=== PATIENT | female | born 2000 | race Caucasian/White ===

== ENCOUNTER 2019-08-11 13:29 | Emergency (ER) | payer SELFPAY ==
[2019-08-11 14:22] LABS: ABS Monocytes 0.8 10^3/ul (0-0.8); Eosinophil % 0.2 %; Hematocrit 41 % (35-47); Hemoglobin 13.9 g/dL (12.0-16.0); Lymphocyte % 10.5 %; Mean Corpuscular HGB Conc 34 g/dL (31-36); Mean Corpuscular Hemoglobin 30 pg (27-31); Mean Corpuscular Volume 89 fL (80-97); Mean Platelet Volume 8.8 fL (7.4-10.4); Platelet Count 270 10^3/uL (150-450); Red Blood Count 4.66 10^6 /uL (3.70-4.87); Red Cell Distribution Width 13 % (10-15); White Blood Count 9.9 10^3/uL (3.5-10.8)
--- NOTE | 2019-08-11 14:24 | ED ---
Head Injury - HPI Summary HPI Summary: 18-year-old female presents after head injury today. States that she ran into another player in the hit her nose during rugby. Nose was not bleeding. She did not have a headache but then developed one. States she did feel lightheaded. She states that she collapsed into teammates arm and states she feels like she passed out and does not remember being caught. She states that she developed shortness of breath and hyperventilation. States she's been having a little bit chest pain. She admits to blurry vision and photophobia. Denies any neck pain. No nausea or vomiting. Has a history of anxiety. She states that her shortness of breath and chest pain resolving. She admits 8 out to 10 headache. She states that she was recently diagnosed with strep and is currently on antibiotics and has not been eating or drinking well. she is on control. no fam hx of blood clots. no pain or swelling in calf muscles. no recent travel. - History Of Current Complaint Chief Complaint: EDHeadInjury Stated Complaint: SHORT OF BREATH PER EMS Time Seen by Provider: 08/11/19 13:35 Pain Intensity: 8 - Allergies/Home Medications Allergies/Adverse Reactions: Allergies Allergy/AdvReac Type Severity Reaction Status Date / Time No Known Allergies Allergy Verified 08/11/19 13:44 Home Medications: Home Medications Norgestimate-Ethinyl Estradiol [Owt-Nm-Ospifn 0.18/0.215/0.25 mg-25 Mcg] 1 tab PO DAILY 08/11/19 [History Confirmed 08/11/19] PMH/Surg Hx/FS Hx/Imm Hx Endocrine/Hematology History: Denies: Hx Anticoagulant Therapy Respiratory History: Denies: Hx Asthma Infectious Disease History: No Infectious Disease History: Denies: Traveled Outside the [place] in Last 30 Days - Family History Known Family History: Positive: Non-Contributory - Social History Alcohol Use: None Substance Use Type: Reports: None Smoking Status (MU): Never Smoked Tobacco Review of Systems Negative: Fever Positive: Chest Pain Positive: Shortness Of Breath. Negative: Cough Negative: Abdominal Pain, Vomiting, Nausea Positive: Headache All Other Systems Reviewed And Are Negative: Yes Physical Exam Triage Information Reviewed: Yes Vital Signs On Initial Exam: Initial Vitals Pulse BP Pulse Ox 73 122/70 98 08/11/19 13:35 08/11/19 13:35 08/11/19 13:35 Vital Signs Reviewed: Yes Appearance: Positive: Well-Appearing Skin: Positive: Warm, Dry Head/Face: Positive: Normal Head/Face Inspection Eyes: Positive: Normal, EOMI, VALE, Conjunctiva Clear ENT: Positive: Normal ENT inspection, Pharynx normal, TMs normal, Other - nose appears midline Neck: Positive: Other: - nontender neck Respiratory/Lung Sounds: Positive: Clear to Auscultation, Breath Sounds Present , Other - reproducible chest pain Cardiovascular: Positive: Normal, RRR Abdomen Description: Positive: Nontender, Soft Bowel Sounds: Positive: Present Musculoskeletal: Positive: Normal Neurological: Positive: Sensory/Motor Intact, Alert, Oriented to Person Place, Time, CN Intact II-III Psychiatric: Positive: Normal Procedures - Sedation Patient Received Moderate/Deep Sedation with Procedure: No Diagnostics - Vital Signs Vital Signs Temp Pulse Resp BP Pulse Ox 08/11/19 13:37 87 17 100 08/11/19 13:36 98.2 F 78 17 122/70 100 08/11/19 13:35 73 122/70 98 - Laboratory Lab Results: Lab Results 08/11/19 Range/Units 14:10 WBC 9.9 (3.5-10.8) 10^3/uL RBC 4.66 (3.70-4.87) 10^6 /uL Hgb 13.9 (12.0-16.0) g/dL Hct 41 (35-47) % MCV 89 (80-97) fL MCH 30 (27-31) pg MCHC 34 (31-36) g/dL RDW 13 (10-15) % Plt Count 270 (150-450) 10^3/uL MPV 8.8 (7.4-10.4) fL Neut % (Auto) 80.5 % Lymph % (Auto) 10.5 % [place] % (Auto) 8.4 % Eos % (Auto) 0.2 % Baso % (Auto) 0.4 % Absolute Neuts (auto) 8.0 H (1.5-7.7) 10^3/ul Absolute Lymphs (auto) 1.0 (1.0-4.8) 10^3/ul Absolute Monos (auto) 0.8 (0-0.8) 10^3/ul Absolute Eos (auto) 0.0 (0-0.6) 10^3/ul Absolute Basos (auto) 0.0 (0-0.2) 10^3/ul Absolute Nucleated RBC 0.0 10^3/ul Nucleated RBC % 0.0 Result Diagrams: 08/11/19 14:10 08/11/19 14:10 Lab Statement: Any lab studies that have been ordered have been reviewed, and results considered in the medical decision making process. - Radiology chest Radiology Interpretation Completed By: Radiologist Summary of Radiographic Findings: IMPRESSION: NO EVIDENCE FOR ACTIVE CARDIOPULMONARY DISEASE. - CT chest CT Interpretation Completed By: Radiologist Summary of CT Findings: IMPRESSION: NO EVIDENCE FOR ACUTE INTRACRANIAL ABNORMALITY. - EKG No standard instances Cardiac Rate: NL EKG Rhythm: Sinus Rhythm Summary of EKG Findings: sinus rhythm Re-Evaluation - Re-Evaluation First Eval Re-Evaluation Time: 14:33 Comment: still has normal neuro exam but is slow to respond Second Eval Re-Evaluation Time: 15:19 Change: Improved Comment: chest pain and SOB still resolved Head Injury Course/Dx Course Of Treatment: 18-year-old female presents after head injury today. States that she ran into another player in the hit her nose during rugby. Nose was not bleeding. She did not have a headache but then developed one. States she did feel lightheaded. She states that she collapsed into teammates arm and states she feels like she passed out and does not remember being caught. She states that she developed shortness of breath and hyperventilation. States she' s been having a little bit chest pain. She admits to blurry vision and photophobia. Denies any neck pain. No nausea or vomiting. Has a history of anxiety. She states that her shortness of breath and chest pain resolving. She admits 8 out to 10 headache. She states that she was recently diagnosed with strep and is currently on antibiotics and has not been eating or drinking well. admits to recent travel and is on control. no fam hx of blood clots. on exam has normal neuro exam but is slow to perform tasks. has tenderness along left side of forehead. lungs CTA. ekg shows on reevaluation patient is complaining of severe headache so will get CT with loc. CT shows no acute findings. wbc normal. d-dimer is 239 which is slightly above normal range (230) but does not have significant risks for PE and is not tachycardic so do not think this is causing symptoms. chest pain and SOB have also resolved. troponin .01. symptoms likely due to anxiety and concussion. will have follow up with [facility]. patient understand and agrees with plan. - Diagnoses Differential Diagnosis/HQI/PQRI: Concussion Without LOC, Contusion, Intracranial Bleed Provider Diagnoses: Head injury, SOB (shortness of breath), Chest wall pain Discharge ED - Sign-Out/Discharge Documenting (check all that apply): Patient Departure - Discharge Plan Condition: Good Disposition: HOME Patient Education Materials: Concussion (ED) Referrals: [facility] - Christiano LUA [Primary Care Provider] - Additional Instructions: Place ice on area as needed Take Tylenol or ibuprofen for headache every 6 hours Modify activities as tolerated Follow up with [facility] Return to ED if develop any new or worsening symptoms - Billing Disposition and Condition Condition: GOOD Disposition: Home
[2019-08-11 14:35] LABS: ALT 13 U/L (7-52); AST 16 U/L (13-39); Albumin 4.6 g/dL (3.2-5.2); Albumin/Globulin Ratio 1.4 (1-3); Alkaline Phosphatase 70 U/L (34-104); Anion Gap 5 mmol/L (2-11); BUN/Creatinine Ratio 18.8 (8-20); Blood Urea Nitrogen 13 mg/dL (6-24); CO2 Carbon Dioxide 28 mmol/L (22-32); Calcium 9.6 mg/dL (8.6-10.3); Chloride 106 mmol/L (101-111); EGFR African American 132.6 (>60); EGFR Non-African American 109.6 (>60); Globulin 3.3 g/dL (2-4); Glucose 83 mg/dL (70-100); Potassium 4.2 mmol/L (3.5-5.0); Sodium 139 mmol/L (135-145); Total Protein 7.9 g/dL (6.4-8.9)
[2019-08-11 14:37] LABS: Troponin I 0.01 ng/mL (<0.04)
[2019-08-11 14:41] LABS: HCG Pregnancy < 0.60 mIU/mL
[2019-08-11] MEDS ORDERED: Ketorolac INJ* 30 MG/ML 1 ML VIAL IV PUSH ONE (15:03)
[2019-08-11 16:15] VITALS: BP 123/71
== END 2019-08-11 15:59 | disposition home or self-care (01) ==
LOC: ED 13:29
DX: S09.90XA Unspecified injury of head, initial encounter (principal); R06.02 Shortness of breath; R07.89 Other chest pain; W51.XXXA Accidental striking against or bumped into by another person, initial encounter; Y93.63 Activity, rugby; Y92.9 Unspecified place or not applicable
CPT/HCPCS: 36415; 70450; 71046; 80053; 84484; 84702; 85025; 85379; 93005; 96374; 99284; J1885